=== PATIENT | male | born 1960 | race Caucasian/White ===

== ENCOUNTER 2017-02-21 15:22 | Emergency (ER) | payer OTHER ==
[~2017-02-21] VITALS: Ht 154.9 cm; Wt 66.7 kg
[~2017-02-21 15:22] MED LIST: GLIP10TA3 PO; HTN MED; LISI10TA11 PO; METF850T PO; NOVR SUBQ; SIMV40TA1 PO; SITA50TA3 PO
[2017-02-21 15:57] VITALS: BP 164/108
--- NOTE | 2017-02-21 16:09 | NUR ---
Patient to bed 01.
--- NOTE | 2017-02-21 16:19 | NUR ---
LAB at bedside.
--- NOTE | 2017-02-21 16:25 | NUR ---
PATIENT PRESENTS TO ED WITH C/O ULCER PAIN TO RIGHT PLANTAR ASPECT OF GREAT TOE AND LEFT GREAT TOE;HX OF DM, HTN, HPERLIPIDEMIA;RX OF INSULIN.PT STATES HE HAS BILAT FOOT NUMBNESS. DENIES N/V/D; SKIN IS PINK/WARM/DRY; AAOX4 WITH EVEN AND STEADY GAIT; LUNGS CLEAR BL; HR EVEN AND REGULAR; PT DENIES ANY FEVER, CP, SOB, OR COUGH AT THIS TIME; PATIENT STATES PAIN OF 5/10 AT THIS TIME; VSS; PATIENT POSITIONED FOR COMFORT; HOB ELEVATED; BEDRAILS UP X2; BED DOWN. ALL MONITORS IN PLACED;ER MD MADE AWARE OF PT STATUS.
[2017-02-21 16:36] LABS: BASOPHILS # (AUTO) 0.1 K/uL (0.00-0.22); BASOPHILS % (AUTO) 0.6 % (0.0-2.0); EOSINOPHILS # (AUTO) 0.1 K/uL (0-0.4); EOSINOPHILS % (AUTO) 0.7 % (0.0-4.0); HEMATOCRIT 40.1 % (36-52); HEMOGLOBIN 13.4 g/dL (12.0-18.0); LYMPHOCYTES # (AUTO) 1.6 K/uL (2.0-11.5); LYMPHOCYTES % (AUTO) 16.6 % (20.5-51.1); MEAN CORPUSCULAR HEMOGLOBIN 31 pg (27-31); MEAN CORPUSCULAR HGB CONC 34 g/dL (33-37); MEAN CORPUSCULAR VOLUME 91 fL (80-94); MONOCYTES % (AUTO) 10.7 % (1.7-9.3); NEUTROPHILS % (AUTO) 71.4 % (42.2-75.2); PLATELET COUNT (AUTO) 303 K/uL (140-450); RED CELL DISTRIBUTION WIDTH 12.4 % (11.6-13.7); WHITE BLOOD COUNT (AUTO) 9.8 K/uL (4.8-10.8)
--- NOTE | 2017-02-21 16:46 | NUR ---
Dr. Abernathy evaluating patient at bedside.
[2017-02-21 16:47] LABS: ALBUMIN 3.6 g/dL (3.4-5.0); ANION GAP 5.7 (8-16); CARBON DIOXIDE 28.3 mmol/L (21-32); CREATININE 1.1 mg/dL (0.7-1.3); TOTAL BILIRUBIN 0.5 mg/dL (0.0-1.0)
--- NOTE | 2017-02-21 17:00 | NUR ---
CRITICAL LAB VALUE OF NA =123;GLUCOSE OF 554;DR YIP NOTIFIED;
--- NOTE | 2017-02-21 17:01 | NUR ---
PT SLEEPING AT THIS TIME;NO ACUTE DISTRESS NOTED;ALL MONITRS IN PLACED;WILL CONTINUE TO MONITOR PT.
[2017-02-21] MEDS ORDERED: ONDANSETRON 4 MG/2 ML VIAL IVP PRN (17:40)
[2017-02-21] MEDS ORDERED: PIPERACILLIN/TAZOBACTAM 2.25 GM in DEXTROSE 5% 50 ML IV ONE (17:50)
[2017-02-21] MEDS ORDERED: VANCOMYCIN PER PHARMACY MC PRN (17:50)
--- NOTE | 2017-02-21 17:54 | NUR ---
CHARGE NURSE TALKED TO DR YIP REGARDING PT'S BP OF 173/80 AND BS OF 554;DR YIP SAYS HE WILL ORDER INSULIN FORT THE PT BUT NO MEDICINE FOR BP OF 173/80.
[2017-02-21] MEDS ORDERED: INSULIN HUMAN REGULAR 100 UNITS/ML 10 ML VIAL IVP ONE (18:00)
--- NOTE | 2017-02-21 18:00 | NUR ---
REMINDED DR. YIP AGAIN OF BD 554 WILL ORDER INSULIN. NO FARTHER TX. OF BP 173/80. PATIENT ASYMPTOMATIC. NURSE KACI MADE AWARE
--- NOTE | 2017-02-21 18:08 | NUR ---
CAN'T DO MEDICATION RECONCILIATION;PT STATES HE CANNOT RECALL MEDICINES HE IS TAKING;
--- NOTE | 2017-02-21 18:25 | NUR ---
Patient will be admitted to care of DR STAPLETON. Admited to MS. Will go to [facility]. Belongings list completed. Report to SHIELA ARREGUIN.
--- NOTE | 2017-02-21 18:40 | NUR ---
PT ARRIVED ON UNIT. PT IS AAOX4 AND SHOWS NO S/S OF ACUTE DISTRESS ON ROOM AIR. IVF'S INFUSING WELL AT THE L AC. NOTED BILATERAL FOOT LESIONS AT GREAT TOES. PT STATED LBM 02/21/17. STATES TOLERABLE PAIN AT 5/10 AT BILATERAL TOES. PATIENT ON MS UNIT. PT EXPLAINED POC FOR TODAY. SAFETY PRECAUTIONS ARE ENFORCED, CALL LIGHT WITHIN REACH, AND EXPLANATION OF HOSPITAL ENVIRONMENT.
[2017-02-21] MEDS: NACL 0.9% 1,000 ML IV SCH (18:53)
[2017-02-21] MEDS: VANCOMYCIN HCL 750 MG in DEXTROSE 5% 250 ML IV SCH (19:00)
[2017-02-21] MEDS ORDERED: VANCOMYCIN 1GM/DEXT 5% PREMIX 200 ML IV SCH (19:00)
--- NOTE | 2017-02-21 19:08 | NUR ---
PT REPORT GIVEN TO NIGHT NURSE. PT ENDORSED IN STABLE CONDITION.
--- NOTE | 2017-02-21 19:09 | NUR ---
RECEIVED BEDSIDE REPORT FROM DAY SHIFT NURSE, KALLIE RN, PT RESTING, NO DISTRESS NOTED, AAOX4, REPORTED HAVING PAIN AT 4/10, PT DOES NOT WANT ANY PAIN MEDICATION AT THIS MOMENT, IV TO L AC 22g RUNNING NS @ 100ML/HR. LESION TO THE GREAT TOE, OPEN TO AIR. ALL SAFETY PRECAUTION MET, INITIAL ASSESSMENT DONE, CALL LIGHT WITHIN REACH.WILL CONTINUE TO MONITOR.
[2017-02-21 19:30] VITALS: BP 120/60
[2017-02-21] MEDS ORDERED: PIPERACILLIN/TAZOBACTAM 2.25 GM VIAL IV ONE (20:14)
[2017-02-21] MEDS ORDERED: VANCOMYCIN 1,000 MG VIAL ONE (20:18)
--- NOTE | 2017-02-21 20:23 | NUR ---
ZOSYN 2.25 GM IN 50ML D5W ADMINISTERED, RUNNING AT 100 ML/HR.
--- NOTE | 2017-02-21 20:24 | NUR ---
VANCOMYCIN STOPPED INFUSING
--- NOTE | 2017-02-21 20:24 | NUR ---
DUE MEDICATION GIVEN, PT TOLERATED WELL, NO DISTRESS NOTED, PT RESTING, FAMILY BY BEDSIDE, CALL LIGHT WITHIN REACH, WILL CONTINUE TO MONITOR.
--- NOTE | 2017-02-21 20:53 | NUR ---
ZOSYN 2.25 GM IN 50ML D5W FINISHED INFUSING, STARTED VANCOMYCIN 1GM IN D5W 200 ML RUNNING @135ML/HR.
[2017-02-21] MEDS ORDERED: METO25TA PO (21:35)
[2017-02-21] MEDS ORDERED: PRAV40TA1 PO (21:36)
[2017-02-21] MEDS ORDERED: VITB12 PO (21:37)
--- NOTE | 2017-02-21 22:23 | NUR ---
VANCOMYCIN 1GM IN 200ML D5W FINISHED INFUSING. PT STABLE, NO DISTRESS NOTED, CALL LIGHT WITHIN REACH. WILL CONTINUE TO MONITOR.
--- NOTE | 2017-02-21 23:10 | NUR ---
CHECKED ON PT, PT RESTING, NO DISTRESS NOTED, REPORTING HAVING NO PAIN AT THIS MOMENT. CALL LIGHT WITHIN REACH, WILL CONTINUE TO MONITOR.
[2017-02-22] VITALS: BP 136/66
[2017-02-22] MEDS ORDERED: INFLUENZA VIRUS VACCINE QUAD 0.5 ML SYR IMVAC PRN (00:35)
[2017-02-22] MEDS ORDERED: PNEUMOCOCCAL VACCINE 23 MCG/0.5 ML VIAL IMVAC PRN (00:35)
--- NOTE | 2017-02-22 01:30 | NUR ---
CHECKED ON PT, PT SLEEPING, EASILY TO AROUSE, NO DISTRESS NOTED, CALL LIGHT WITHIN REACH, WILL CONTINUE TO MONITOR.
[2017-02-22] MEDS: NACL 0.9% 1,000 ML IV SCH ×3 (03:39→22:17)
--- NOTE | 2017-02-22 04:14 | NUR ---
CHECKED ON PT, PT SLEEPING, EASY TO AROUSE, NO DISTRESS NOTED, CALL LIGHT WITHIN REACH, WILL CONTINUE TO MONITOR.
[2017-02-22 05:47] LABS: BASOPHILS # (AUTO) 0.1 K/uL (0.00-0.22); BASOPHILS % (AUTO) 0.7 % (0.0-2.0); EOSINOPHILS # (AUTO) 0.1 K/uL (0-0.4); EOSINOPHILS % (AUTO) 0.9 % (0.0-4.0); HEMATOCRIT 36.6 % (36-52); HEMOGLOBIN 12.3 g/dL (12.0-18.0); LYMPHOCYTES # (AUTO) 2.1 K/uL (2.0-11.5); LYMPHOCYTES % (AUTO) 22.1 % (20.5-51.1); MEAN CORPUSCULAR HEMOGLOBIN 31 pg (27-31); MEAN CORPUSCULAR HGB CONC 34 g/dL (33-37); MEAN CORPUSCULAR VOLUME 92 fL (80-94); MONOCYTES # (AUTO) 1.1 K/uL (0.8-1.0); MONOCYTES % (AUTO) 11.4 % (1.7-9.3); NEUTROPHILS % (AUTO) 64.9 % (42.2-75.2); PLATELET COUNT (AUTO) 284 K/uL (140-450); RED BLOOD CELL COUNT(AUTO) 3.99 MIL/uL (4.20-6.10); RED CELL DISTRIBUTION WIDTH 12.3 % (11.6-13.7); WHITE BLOOD COUNT (AUTO) 9.4 K/uL (4.8-10.8)
[2017-02-22 05:58] LABS: ANION GAP 12.4 (8-16); CARBON DIOXIDE 27.1 mmol/L (21-32); CREATININE 0.9 mg/dL (0.7-1.3); POTASSIUM 4.5 mmol/L (3.5-5.1)
[2017-02-22 06:02] LABS: MAGNESIUM 1.7 mg/dL (1.8-2.4); PHOSPHORUS 3.1 mg/dL (2.5-4.9)
[2017-02-22] MEDS: BLOOD GLUCOSE MONITORING 1 DEV DEV FS SCH ×4 (06:35→21:16)
[2017-02-22] MEDS ORDERED: VANCOMYCIN 1,000 MG VIAL ONE (06:55)
[2017-02-22] MEDS: VANCOMYCIN HCL 750 MG in DEXTROSE 5% 250 ML IV SCH ×2 (07:02→18:14)
--- NOTE | 2017-02-22 07:02 | NUR ---
VANCOMYCIN 759MG IN D5W 250ML STARTED, RUNNING AT 165ML/HR.
[2017-02-22] MEDS: INSULIN LISPRO SLIDING SCALE 100 UNITS/ML VIAL SUBQ PRN ×3 (07:04→21:22)
--- NOTE | 2017-02-22 07:05 | NUR ---
GAVE BEDSIDE REPORT TO DAY SHIFT NURSE, PT STABLE NO DISTRESS NOTED, CALL LIGHT WITHIN REACH.
--- NOTE | 2017-02-22 07:15 | NUR ---
ENDORSEMENT RECEIVED FROM MIXER FOAM RUBBER NURSE. PATIENT IS AWAKE, STABLE. RESPIRATION IS EVEN, UNLABOR. SKIN DRY AND WARM TO THE TOUCH. CALL LIGHT WITHIN REACH. WILL CONTINUE TO MONITOR
--- NOTE | 2017-02-22 07:24 | NUR ---
PATIENT HAS BEEN RESCREENED AND RE-CATEGORIZED HIGH NUTRITION RISK. PATIENT WILL BE SEEN WITHIN 1-2 DAYS OF ADMISSION. 02/22/17-02/23/[address]
[2017-02-22 08:00] VITALS: BP 129/61
--- NOTE | 2017-02-22 08:00 | NUR ---
PATIENT AWAKE, ALERT, ORIENTED X4. PUPILS SLUGGISH, EQUAL REACTIVE TO LIGHT. RESPIRATION EVEN, LUNGS SOUND CLEAR THROUGHOUT. CARDIAC WITH S1, S2 PRESENT. BOWEL SOUNDS ACTIVE ALL 4 QUADRANTS. BILATERAL CELLULITIS WITH LESIONS ON 2 BIG TOES, SKIN OTHERWISE INTACT. IV 22G ON RIGHT FOREARM WITH NS @100ML/HR, INTACT AND PATENT. NO COMPLAIN OF PAIN AT THIS TIME. CALL LIGHT WITHIN REACH. WILL CONTINUE TO MONITOR
--- NOTE | 2017-02-22 08:32 | NUR ---
VANCOMYCIN INFUSION COMPLETED. 750MG IN 250 ML BAG INFUSED.
[2017-02-22] MEDS: ENOXAPARIN 40 MG/0.4 ML SYR SUBQ SCH (09:56)
--- NOTE | 2017-02-22 10:01 | NUR ---
NORMAL SALINE IV 1000 ML WAS HUNG AT 100 ML/HR. Addendum: 02/22/17 at 1124 by Hannah Valencia RN PREVIOUS NORMAL SALINE IV 1000ML COMPLETED.
--- NOTE | 2017-02-22 10:15 | NUR ---
PATIENT IS AWAKE, ALERT. DISCUSSED WITH THE PATIENT PLAN OF CARE VIA QUALITY IMPROVEMENT ENGINEER ID [id number] RUTH. ALL QUESTION ANSWERED. PATIENT VERBALIZED UNDERSTANDING. FAMILY AT BEDSIDE. CALL LIGHT WITHIN REACH. WILL CONTINUE TO MONITOR.
--- NOTE | 2017-02-22 11:43 | NUR ---
02/22/17 RD INITIAL ASSESSMENT COMPLETED PLEASE REFER TO NUTRITION ASSESSMENT UNDER CARE ACTIVITY FOR ESTIMATED NUTRITIONAL NEEDS. RD RECOMMENDATIONS: 1. CONTINUE CCHO 60 GM DIET TOLERATED. -NOTE PT CONSUMED 100% OF BREAKFAST THIS MORNING, 2. RD PROVIDED DM DIET EDUCATION HANDOUT IN ESTONIAN FOR PT. 3. RD WILL F/U 3-5 DAYS; MODERATE RISK. JAYLEN CALVO, RD
--- NOTE | 2017-02-22 12:13 | NUR ---
PATIENT IS SITTING UP, EATING LUNCH. FAMILY AT BEDSIDE. NO DISTRESS NOTED. NO COMPLAIN OF PAIN AT THIS TIME. CALL LIGHT WITHIN REACH. WILL CONTINUE TO MONITOR
--- NOTE | 2017-02-22 14:10 | NUR ---
PATIENT IS SLEEPING COMFORTABLY. RESPIRATION EVEN. NO DISTRESS NOTED. CALL LIGHT WITHIN REACH. WILL CONTINUE TO MONITOR
[2017-02-22 16:00] VITALS: BP 157/76
--- NOTE | 2017-02-22 16:42 | NUR ---
PODAIATRIST AT BEDSIDE, PT CONSENTED FOR DEBRIEDMENT, XRAY AT [facility].
--- NOTE | 2017-02-22 17:24 | NUR ---
6 UNITS GIVEN FOR BLOOD SUGAR 252. PATIENT SITTING UP EATING DINNER. IV CONTINUES TO INFUSE, SITE WNL. RIGHT TOE WITH DRESSING S/P DEBRIDEMENT. DRESSING CLEAN DRY INTACT. WILL APPLY ANTIBIOTIC OITMENT AND BANDAID ON LEFT TOE PER ORDER. WOUND CULTURE SENT TO LAB. PATIENT DENIED ANY IMMEDIATE NEEDS. FAMILY AT BEDSIDE. WILL CONTINUE TO MONITOR.
--- NOTE | 2017-02-22 18:14 | NUR ---
VANCOMYCIN 750MG IN 250ML OF D5 STARTED IVPB TO RUN AT 165ML/HR, IV SITE CLEAR WNL, WILL CONTINUE TO MONITOR.
--- NOTE | 2017-02-22 18:38 | NUR ---
PATIENT AWAKE, ALERT, STABLE. RESPIRATION EVEN, UNLABOR. NO DISTRESS NOTED. FAMILY AT BEDSIDE. DENIED PAIN AT THIS TIME. CALL LIGHT WITHIN REACH. WILL CONTINUE TO MONITOR
[2017-02-22] MEDS ORDERED: MAG SULF 2000 MG/WATER PREMIX 50 ML IV SCH (19:10)
--- NOTE | 2017-02-22 19:10 | NUR ---
NOTIFIED DR. WALDRON REGARDING LOW MAG LEVEL. NEW MAG RIDER WAS PUT IN.
--- NOTE | 2017-02-22 19:28 | NUR ---
ENDORSEMENT GIVEN TO EMERGENCY RESPONSE TECHNICIAN NURSE. PATIENT IS STABLE, AWAKE, ALERT. NO DISTRESS NOTED.
--- NOTE | 2017-02-22 19:36 | NUR ---
RECEIVED HANDOFF REPORT FROM AM RN. PATIENT A&OX4. PATIENT STATES 10/10 PAIN. WILL MEDICATE ORDERED. IV PATENT AND INTACT. DRESSING DRY AND INTACT. NO SIGNS OR SYMPTOMS OF ACUTE DISTRESS NOTED. CALL LIGHT WITHIN REACH. WILL CONTINUE TO MONITOR.
[2017-02-22] MEDS ORDERED: HYDROmorphone 1 MG/ML AMP IVP PRN (20:10)
[2017-02-22] MEDS ORDERED: HYDROcodone/APAP 10/325 MG 1 TAB TAB PO PRN (20:10)
--- NOTE | 2017-02-22 22:00 | NUR ---
PATIENT DIAPHORETIC, REPORTS ANXIETY & NAUSEA. BP 170/110, HR 85, RR 20, O2 96 ON ROOM AIR. PAGED MD TO NOTIFY PATIENT REACTION TO DILAUDID 1 MG AT 2130. APPLIED 1L O2, PROVIDED TOWEL TO FOR DIAPHORESIS. VITALS TREND DOWN EVERY 15 MINUTES. CALL BACK FROM [id number], DISCONTINUE DILAUDID. PATIENT BP 145/64, HR 65, O2 100% ON 1L NC, RR 16. WILL CONTINUE TO MONITOR.
--- NOTE | 2017-02-22 22:17 | NUR ---
PATIENT RESTING IN BED. RR 16 SYMMETRICAL NON LABORED, PATIENT DENIES ANXIETY. NO SIGNS OR SYMPTOMS OF ACUTE DISTRESS NOTED. CALL LIGHT WITHIN REACH. WILL CONTINUE TO MONITOR.
[2017-02-23] VITALS: BP 136/64
--- NOTE | 2017-02-23 00:23 | NUR ---
PATIENT RESTING IN BED. PATIENT DENIES PAIN. PATIENT DENIES ANXIETY. NO SIGNS OR SYMPTOMS OF ACUTE DISTRESS NOTED. CALL LIGHT WITHIN REACH. WILL CONTINUE TO MONITOR.
[2017-02-23] MEDS: NEOMYCIN/POLYMYXIN/BACITRACIN OIN 15 GM TUBE TP SCH ×2 (01:00→12:31)
--- NOTE | 2017-02-23 03:15 | NUR ---
PATIENT RESTING IN BED. PATIENT DENIES PAIN. NO SIGNS OR SYMPTOMS OF ACUTE DISTRESS NOTED. CALL LIGHT WITHIN REACH. WILL CONTINUE TO MONITOR.
[2017-02-23 06:34] LABS: ANION GAP 13.9 (8-16); CARBON DIOXIDE 27.9 mmol/L (21-32); CREATININE 0.7 mg/dL (0.7-1.3); POTASSIUM 4.8 mmol/L (3.5-5.1)
[2017-02-23] MEDS: VANCOMYCIN HCL 750 MG in DEXTROSE 5% 250 ML IV SCH (06:36)
[2017-02-23] MEDS: INSULIN LISPRO SLIDING SCALE 100 UNITS/ML VIAL SUBQ PRN ×2 (06:42→11:41)
--- NOTE | 2017-02-23 07:08 | NUR ---
VANCOMYCIN INFUSION COMPLETE. WILL CONTINUE TO MONITOR.
--- NOTE | 2017-02-23 07:20 | NUR ---
PATIENT SITTING IN BED WITH BREAKFAST TRAY IN FRONT. IN STABLE CONDITION, DENIES ANY PAIN AT THIS TIME. RESPIRATORY EVEN, UNLABORED, ON ROOM AIR. IV INTACT, PATENT, AND INFUSING IVF PER ORDERS. AAOX4, CALM, COOPERATIVE, LAST VOMIT WAS AT 0100 PER PATIENT REPORTS, NO VOMITING/NAUSEA AT THIS TIME. SKIN COLOR APPROPRIATE TO ETHNICITY, WARM TO TOUCH. LEFT FOOT BIG TOE LESION CHOCOLATE TEMPERER. RIGHT FOOT BIG TOE BANDAGE DRY AND INTACT. NO OTHER WOUNDS/LESIONS ON BODY. LUNGS CTA ON ALL LOBES. PLAN OF CARE REVIEWED WITH PATIENT. PATIENT VERBALIZED UNDERSTANDING. SAFETY MEASURES IN PLACE, CALL LIGHT WITHIN REACH, FALL PREVENTIONS IN PLACE. WILL CONTINUE TO MONITOR.
[2017-02-23] MEDS: BLOOD GLUCOSE MONITORING 1 DEV DEV FS SCH ×2 (07:31→11:42)
[2017-02-23 08:00] VITALS: BP 169/76
[2017-02-23] MEDS ORDERED: HYDROcodone/APAP 10/325 MG 1 TAB TAB PO PRN (08:18)
[2017-02-23] MEDS: ENOXAPARIN 40 MG/0.4 ML SYR SUBQ SCH (09:42)
[2017-02-23] MEDS: NACL 0.9% 1,000 ML IV SCH (09:43)
--- NOTE | 2017-02-23 09:50 | NUR ---
PATIENT SITTING IN BED WATCHING TV. NO DISTRESS NOTED. DENIES ANY PAIN AT THIS TIME. MEDICATIONS DUE GIVEN. DRESSING ON RIGHT TOE DRY AND INTACT. LEFT TOE BONNY. SAFETY MEASURES IN PLACE, CALL LIGHT WITHIN REACH. WILL CONTINUE TO MONITOR.
[2017-02-23] MEDS ORDERED: AMOX-999 PO (10:59)
--- NOTE | 2017-02-23 12:44 | NUR ---
FAXED INITIAL REVIEW TO [facility] [phone] PHONE [phone] TRACKING NUMBER [id number]
--- NOTE | 2017-02-23 13:15 | NUR ---
PATIENT SITTING IN BED WATCHING TV. NO DISTRESS NOTED, IN STABLE CONDITION. RESPIRATIONS EVEN, UNLABORED, ON ROOM AIR. PATIENT TO BE D/C HOME VIA PRIVATE VEHICLE. PROVIDED DISCHARGE INSTRUCTIONS/EDUCATION, FOLLOW-UP VISITS, NEW/CHANGED MEDICATIONS, AND WOUND CARE PROCEDURES ON LEFT TOE. RIGHT TOE DRESSING DRY, INTACT AND TO BE CHANGED DURING FOLLOW-UP VISIT WITH MD. IV REMOVED WITH MINIMAL BLOOD AND LUMEN COMPLETELY INTACT. PATIENT GOING HOME WITH ORTHO BOOT FOR RIGHT FOOT PER MD ORDERS. ABLE TO TRANSFER SELF WITH STEADY GAIT. REQUIRES WHEELCHAIR UPON DISCHARGE TO [facility]. ID BANDS REMOVED. AWAITING FOR TO COME CONTACT LENS TECHNICIAN PATIENT TO D/C HOME VIA PRIVATE VEHICLE. Addendum: 02/23/17 at 1435 by Oc Dias RN TRANSLATION SERVICES VIA BLUE PHONE PROVIDED DURING DISCHARGE INSTRUCTIONS. DOT NET DEVELOPER ID#[id number]. ANSWERED ALL PATIENT'S QUESTIONS AND PATIENT VERBALIZED UNDERSTANDING OF ALL DISCHARGE INSTRUCTIONS.
--- NOTE | 2017-02-23 13:45 | NUR ---
PATIENT'S AT [facility]. WHEELED PATIENT DOWN VIA WHEELCHAIR. PATIENT D/C HOME VIA PRIVATE VEHICLE IN STABLE CONDITION.
[2017-02-23] MEDS ORDERED: VANCOMYCIN 1GM/DEXT 5% PREMIX 200 ML IV SCH (15:00)
--- NOTE | 2017-02-24 07:57 | NUR ---
WOUND CARE EVAL. NOT DONE, PT DISCHARGED.
== END 2017-02-23 13:45 | disposition home or self-care (01) ==
LOC: MED 15:22 → UNDOADMOB 17:59 → MTU 17:59
PROVIDERS: ADMIT Hospitalist; ATTEND Hospitalist
DX: L03.032 Cellulitis of left toe (principal); L03.031 Cellulitis of right toe; E11.42 Type 2 diabetes mellitus with diabetic polyneuropathy; E78.5 Hyperlipidemia, unspecified; I10 Essential (primary) hypertension; E83.42 Hypomagnesemia; F17.290 Nicotine dependence, other tobacco product, uncomplicated
CPT/HCPCS: 36415; 73630; 80048; 80053; 80202; 82948; 83735; 84100; 85025; 87070; 87075; 87081; 87186; 87205; 90471; 90472; 90658; 90732; 96365; 96366; 96367; 96372; 96375; 99285; G0378; J1170; J1650; J1815; J2405; J2543; J3370; J3475; J7030; J7060; Q0092

== ENCOUNTER 2017-10-22 19:33 | Emergency (ER) | payer OTHER ==
[~2017-10-22] VITALS: Ht 152.4 cm; Wt 72.6 kg
[~2017-10-22 19:33] MED LIST changes: +AMOX-999 PO; -HTN MED; +METO25TA PO; +PRAV40TA1 PO; +VITB12 PO
[2017-10-22 19:42] VITALS: BP 125/65
--- NOTE | 2017-10-22 19:50 | NUR ---
pt sent to vasyl langley, even steady gait.
--- NOTE | 2017-10-22 20:58 | NUR ---
pt returned to er lobby via wheelchair from xray.
--- NOTE | 2017-10-22 21:42 | NUR ---
PT AMBULATED TO ER BED 03
--- NOTE | 2017-10-22 21:45 | NUR ---
PATIENT PRESENTS TO ED WITH RIGHT TOE PAIN. PATIENT STATES HE WAS SEEN BY HIS PCP FOR HIS LEFT TOE D/T GANGR[place]. PATIENT HAS SWELLING AND REDNESS TO HIS RIGHT TOE. PT DENIES N/V/D; SKIN IS PINK/WARM/DRY; AAOX4 WITH EVEN AND STEADY GAIT; LUNGS CLEAR BL; HR EVEN AND REGULAR; PT DENIES ANY FEVER, CP, SOB, OR COUGH AT THIS TIME; PATIENT STATES PAIN OF 10/10 AT THIS TIME; VSS; PATIENT POSITIONED FOR COMFORT; HOB ELEVATED; BEDRAILS UP X1; BED DOWN. ER MD MADE AWARE OF PT STATUS.
[2017-10-22] MEDS ORDERED: KETOROLAC 30 MG/ML VIAL IM ONE (22:40)
[2017-10-22] MEDS ORDERED: CLINDAMYCIN 150 MG CAP PO ONE (22:40)
--- NOTE | 2017-10-22 23:22 | NUR ---
Patient discharged with v/s stable. Written and verbal after care instructions given and explained. Patient alert, oriented and verbalized understanding of instructions. Ambulatory with steady gait. All questions addressed prior to discharge. ID band removed. Patient advised to follow up with PMD. Rx of MOTRIN, CLINDAMYCIN given. Patient educated on indication of medication including possible reaction and side effects. Opportunity to ask questions provided and answered.
[2017-10-22 23:23] VITALS: BP 125/65
== END 2017-10-22 23:22 | disposition home or self-care (01) ==
LOC: MED 19:33
DX: S90.421A Blister (nonthermal), right great toe, initial encounter (principal); R68.83 Chills (without fever); E11.9 Type 2 diabetes mellitus without complications; I10 Essential (primary) hypertension; Z79.899 Other long term (current) drug therapy; Z88.8 Allergy status to other drugs, medicaments and biological substances; Z79.4 Long term (current) use of insulin; X58.XXXA Exposure to other specified factors, initial encounter; Y93.89 Activity, other specified; Y92.89 Other specified places as the place of occurrence of the external cause; Y99.8 Other external cause status
CPT/HCPCS: 73630; 96372; 99284; J1885